=== PATIENT | male | born 1965 | race Caucasian/White ===

== ENCOUNTER 2016-12-01 08:57 | Emergency (ER) | payer SELFPAY ==
[2016-12-01] MEDS ORDERED: ASPIRIN 81 MG TABLET, CHEWABLE PO ONE (09:42)
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
[2016-12-01] MEDS ORDERED: HYDROCHLOROTHIAZIDE 25 MG TABLET PO ONE (10:28)
[2016-12-01 10:32] LABS: ABSOLUTE EOSINOPHILS # (AUTO) 0.3 10^3/uL (0.0-0.6); ABSOLUTE LYMPHOCYTES (AUTO) 1.4 10^3/uL (0.5-4.7); ABSOLUTE MONOCYTES (AUTO) 0.6 10^3/uL (0.1-1.4); ABSOLUTE NEUT (AUTO) 5.7 10^3/uL (1.7-8.2); BASOPHILS % (AUTO) 0.5 % (0-2); HEMOGLOBIN 19.1 g/dL (13.5-17.0); HGB HCT DIFFERENCE 2.3; LYMPHOCYTES % (AUTO) 17.1 % (13-45); MEAN CORPUSCULAR HEMOGLOBIN 32.7 pg (27.0-33.4); MEAN CORPUSCULAR HGB CONC 34.6 g/dL (32.0-36.0); MEAN CORPUSCULAR VOLUME 94 fl (80-97); MONOCYTES % (AUTO) 7.1 % (3-13); RED BLOOD COUNT 5.83 10^6/uL (4.35-5.55); RED CELL DISTRIBUTION WIDTH 14.1 % (11.5-14.0); SEGMENTED NEUTROPHILS % (AUTO) 71.3 % (42-78); WHITE BLOOD COUNT 7.9 10^3/uL (4.0-10.5)
--- NOTE | 2016-12-01 10:53 | RADIOLOGY REPORT (SQ) ---
EXAM DESCRIPTION: CHEST SINGLE VIEW COMPLETED DATE/TIME: 12/01/2016 10:35 am REASON FOR STUDY: CP COMPARISON: None. EXAM PARAMETERS: NUMBER OF VIEWS: One view. TECHNIQUE: Single frontal radiographic view of the chest acquired. RADIATION DOSE: NA LIMITATIONS: None. FINDINGS: LUNGS AND PLEURA: No opacities, masses or pneumothorax. No pleural effusion. MEDIASTINUM AND HILAR STRUCTURES: No masses. Contour normal. HEART AND VASCULAR STRUCTURES: Mild cardiomegaly. Normal vasculature. BONES: No acute findings. HARDWARE: None in the chest. OTHER: No other significant finding. IMPRESSION: Mild cardiomegaly without evidence of acute cardiopulmonary disease. TECHNICAL DOCUMENTATION: JOB ID: [id number]
[2016-12-01 10:57] LABS: ALANINE AMINOTRANSFERASE 57 U/L (21-72); ALBUMIN 4.2 g/dL (3.5-5.0); ALKALINE PHOSPHATASE 81 U/L (38-126); ANION GAP 9 (5-19); ASPARTATE AMINO TRANSFERASE 39 U/L (17-59); BILIRUBIN,DIRECT 0.3 mg/dL (0.0-0.4); BILIRUBIN,TOTAL 1.4 mg/dL (0.2-1.3); BLOOD UREA NITROGEN 14 mg/dL (7-20); CALCIUM 9.7 mg/dL (8.4-10.2); CARBON DIOXIDE 28 mmol/L (22-30); CHLORIDE 102 mmol/L (98-107); CREATINE KINASE 54 U/L (55-170); CREATININE RESULT 0.95 mg/dL (0.52-1.25); GLUCOSE 107 mg/dL (75-110); POTASSIUM 4.2 mmol/L (3.6-5.0); SODIUM 138.9 mmol/L (137-145); TOTAL PROTEIN 7.7 g/dL (6.3-8.2)
[2016-12-01] MEDS ORDERED: NORMAL SALINE 1000 ML 1,000 ML IV PRN (11:02)
[2016-12-01 11:18] LABS: TROPONIN I < 0.012 ng/mL
[2016-12-01 11:53] LABS: LIPASE 836.8 U/L (23-300); MAGNESIUM 2.1 mg/dL (1.6-2.3)
[2016-12-01] MEDS ORDERED: MAGNESIUM OXIDE 400 MG TABLET PO ONE (12:17)
[2016-12-01 12:19] VITALS: BP 162/110
--- NOTE | 2016-12-01 13:59 | ER Document Report ---
ED General - General Chief Complaint: Blood Pressure Problem Stated Complaint: BLOOD PRESSURE PROBLEMS Time Seen by Provider: 12/01/16 09:36 TRAVEL OUTSIDE OF THE [place] IN LAST 30 DAYS: No - HPI Patient complains to provider of: Hypertension Notes: Patient is a 51 year old male presenting to the emergency department for hypertension. Patient states he has had a headache, lightheadedness, and blurry vision ongoing for greater than 48 hours.. Patient also had some shortness of breath and chest pains yesterday. Patient states he took his blood pressure yesterday which was 165/105 and today it was 185/118 and 170/116. Patient is from [place] however has been in [place] for approximately 1 year. Patient denies any previous history of hypertension however he has not seen a physician for a long time. Patient denies any recent trauma. Patient denies any fevers chills nausea vomiting diarrhea. Patient states that he does smoke marijuana and on the weekend does drink a 12 pack Saturdays and Sundays. Patient otherwise states that at this time he is feeling okay by my evaluation - Related Data Allergies/Adverse Reactions: No Known Allergies Allergy (Verified 12/01/16 09:11) Past Medical History - Social History Smoking Status: Never Smoker Cigarette use (# per day): No Chew tobacco use (# tins/day): Yes - snuff Frequency of alcohol use: Occasional Drug Abuse: Marijuana Family History: Reviewed & Not Pertinent Patient has suicidal ideation: No Patient has homicidal ideation: No Renal/ Medical History: Denies: Hx Peritoneal Dialysis Past Surgical History: Reports: Hx Oral Surgery - wisdom, Hx Orthopedic Surgery - R thumb Review of Systems - Review of Systems Constitutional: Other - Hypertension chest pain EENT: No symptoms reported Cardiovascular: No symptoms reported Respiratory: No symptoms reported Gastrointestinal: No symptoms reported Genitourinary: No symptoms reported Male Genitourinary: No symptoms reported Musculoskeletal: No symptoms reported Skin: No symptoms reported Hematologic/Lymphatic: No symptoms reported Neurological/Psychological: No symptoms reported Physical Exam - Vital signs Vitals: Temp Pulse Resp BP Pulse Ox 98.4 F 78 20 184/106 H 98 12/01/16 09:11 12/01/16 09:11 12/01/16 09:11 12/01/16 09:11 12/01/16 09:11 Interpretation: Normal - General General appearance: Appears well, Alert - HEENT Head: Normocephalic, Atraumatic Eyes: Normal Pupils: PERRL - Respiratory Respiratory status: No respiratory distress Chest status: Nontender Breath sounds: Normal Chest palpation: Normal - Cardiovascular Rhythm: Regular Heart sounds: Normal auscultation Murmur: No - Abdominal Inspection: Normal Distension: No distension Bowel sounds: Normal Tenderness: Nontender Organomegaly: No organomegaly - Back Back: Normal, Nontender - Extremities General upper extremity: Normal inspection, Nontender, Normal color, Normal ROM , Normal temperature General lower extremity: Normal inspection, Nontender, Edema - Trace to 1+, Normal color, Normal ROM, Normal temperature, Normal weight bearing. No: Ec' s sign - Neurological Neuro grossly intact: Yes Cognition: Normal Orientation: AAOx4 Carla Coma Scale Eye Opening: Spontaneous Carla Coma Scale Verbal: Oriented [place] Coma Scale Motor: Obeys Commands [place] Coma Scale Total: 15 Speech: Normal Motor strength normal: LUE, RUE, LLE, RLE Sensory: Normal - Psychological Associated symptoms: Normal affect, Normal mood - Skin Skin Temperature: Warm Skin Moisture: Dry Skin Color: Normal Course - Re-evaluation Re-evalutation: 12/01/16 14:01 The patient has atypical chest pain as the patient's chest pain is not suggestive of pulmonary embolus, cardiac ischemia, aortic dissection, or other serious etiology. Given the extremely low risk of these diagnoses further testing and evaluation for these possibilities does not appear to be indicated at this time. The patient has been instructed to return if the symptoms worsen or change in any way. Patient's vital signs have remained stable patient chest pain-free during the entire visit here. We will start the patient on hydrochlorothiazide for his elevated blood pressure. 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 I did educate the patient about the use of alcohol and smoking marijuana and the need for him to avoid these also educated patient about the need to follow-up with a primary care physician. Patient agrees that he will patient discharged home - Vital Signs Vital signs: Temp Pulse Resp BP Pulse Ox 98.4 F 78 26 H 162/110 H 97 12/01/16 09:11 12/01/16 09:11 12/01/16 12:01 12/01/16 12:01 12/01/16 12:01 - Laboratory Result Diagrams: 12/01/16 10:10 12/01/16 10:10 Laboratory results interpreted by me: 12/01/16 12/01/16 12/01/16 10:10 10:10 10:10 RBC 5.83 H Hgb 19.1 H Hct 55.0 H RDW 14.1 H Total Bilirubin 1.4 H Creatine Kinase 54 L Lipase 836.8 H Discharge - Discharge Clinical Impression: Hypertension Qualifiers: Hypertension type: essential hypertension Qualified Code(s): I10 - Essential ( primary) hypertension Condition: Good Disposition: HOME, SELF-CARE Instructions: Aspirin (Cardiac) ([facility]), Family Physicians / Practices, High Blood Pressure, Requiring Treatment ([facility]), Hydrochlorothiazide ([facility]) Additional Instructions: I recommend taking a baby aspirin and multivitamin a day. We will prescribe you blood pressure medication hydrochlorothiazide. Return to the ER symptoms worsen. Please follow-up with the clinics provided or the family doctors provided. Prescriptions: Hydrochlorothiazide 25 mg PO DAILY #30 tablet Forms: Return to Work
--- NOTE | 2016-12-01 23:56 | EKG REPORT ---
SEVERITY:- NORMAL ECG - SINUS RHYTHM : Confirmed by: Stoney Ni 01-Dec-2016 23:56:01
== END 2016-12-01 12:27 | disposition home or self-care (01) ==
LOC: ER 08:57
DX: I10 Essential (primary) hypertension (principal); R07.89 Other chest pain; R51 Headache; R42 Dizziness and giddiness; H53.8 Other visual disturbances; R06.02 Shortness of breath; Z72.0 Tobacco use
CPT/HCPCS: 93005; 99284; 96360; 36415; 82553; 82550; 83690; 83735; 85025; 80053; 84484; 71010; 93010; J7030